=== PATIENT | female | born 1950 | race Caucasian/White ===

== ENCOUNTER 2023-06-09 07:30 | Day surgery (SDC) | payer OTHER ==
--- NOTE | 2023-06-07 11:21 | RAD REPORT ---
EXAM DESCRIPTION: RAD - Chest Pa And Lat (2 Views) - 06/07/2023 11:09 am CLINICAL HISTORY: pre procedure Chest pain. COMPARISON: No comparisons FINDINGS: The lungs are clear. The heart is mildly enlarged in size. No displaced fractures. IMPRESSION: No acute or concerning finding suspected. The USPSTF recommends annual screening for lung cancer with low-dose CT (LDCT) in adults aged 50 to 8 0 years who have a 20 pack-year smoking history and currently smoke or have quit within the past 15 y ears.
[2023-06-07 11:49] LABS: Absolute Lymphocytes (CBC) 2.2 K/uL (0.7-4.9); Hematocrit 40.3 % (36.0-45.0); Lymphocytes % 29.7 % (15.3-44.8); MCV 87.2 fL (80-100); MPV 8.5 fL (7.6-11.3); Platelets 257 thou/uL (152-406); RBC Red Blood Cell Count 4.62 M/uL (3.86-4.86)
[2023-06-07 11:56] LABS: Protime INR 0.98
[2023-06-07 12:05] LABS: Potassium 4.3 mEq/L (3.5-5.1)
[2023-06-09] MEDS ORDERED: NA CHLORIDE 0.9% 500 ML ONE (08:21)
[2023-06-09 08:47] VITALS: TEMP 97.2
[2023-06-09] MEDS ORDERED: LIDOCAINE 1% 20 ML MDV ONE (09:27)
[2023-06-09] MEDS ORDERED: HEPA 1000U/500MLS 2,000 UNIT/1,000 ML BAG IV ONE (09:27)
[2023-06-09] MEDS ORDERED: MIDAZOLAM HCL 2 MG/2 ML INJ ONE (09:30)
[2023-06-09] MEDS ORDERED: HEPARIN 10,000 UNIT/10 ML VIAL IV ONE (09:30)
[2023-06-09] MEDS ORDERED: FENTANYL CITR 100 MCG/2 ML ONE (09:30)
[2023-06-09] MEDS ORDERED: CLOPIDOGREL 75 MG TABLET ONE (10:06)
[2023-06-09] MEDS ORDERED: TICAGRELOR 90 MG TABLET PO ONE (10:06)
[2023-06-09] MEDS ORDERED: ASPIRIN 325 MG TAB ONE (10:06)
[2023-06-09] MEDS ORDERED: ATROPINE SULF 1 MG/10 ML SYR IV ONE (10:42)
--- NOTE | 2023-06-09 11:19 | OP ---
Date of Procedure: 06/09/2023 Surgeon: SOLOMON GERARD Procedures Performed: 1.Selective coronary angiogram. 2.Left heart catheterization. 3.PCI of severe proximal RCA 99% stenosis. I used 3.5 x 20 mm Synergy drug-eluting stent. Indication: Chest pain with abnormal stress test. Access: Right radial artery 6-[place] closed with TR band. Complications: None. Anesthesia: Total sedation time was 1 hour. Used fentanyl and Versed. Description Of Procedure: After risks, benefits, and alternatives were explained, patient agreed to procedure and signed informal consent. Patient was brought into cardiac catheterization laboratory, prepped and draped in usual sterile fashion and then I accessed right radial artery using pediatric m icropuncture kit, placed a 6-[place] Slender sheath and took 5-[place] 4 catheter into the aortic root, engaged left main, took standard views and then in the RCA, took standard views and the cathet er was pushed over the wire into the LV, measured the LVEDP, and pullback did not record any gradient , then I gave systemic heparin to assure ACT level above 250 throughout the procedure. Gave 180 Bril inta, 325 mg aspirin, and took a 6-[place] JR4 guide into the aortic root over the J-wire, engaged the RCA and took a Runthrough wire into the RCA, placed it distally and using a 3.0 Compliant balloon to high pressure, lesion expanded very well and then I used a 3.5 x 15 NC balloon with good expansion. Subsequently, I took a 3.5 x 20 mm Synergy drug-eluting stent across the area of stenosis with excel lent position and excellent expansion. Patient tolerated the procedure very well. Final angiogram w as satisfactory. Then wire and guide and sheath were removed, placed TR band with good hemostasis. Findings: 1.Left main; large and normal. 2.LAD; moderate-sized vessel with mid 40% at the takeoff of the diagonal. Diagonal appears to be no rmal and the LAD distally becomes very small, has 50% stenosis focally, gives collaterals to the RCA. 3.Left circumflex is moderate size, with no significant disease. 4.RCA; large and dominant with proximal 80% and then it becomes 99% heavily calcified, status post s uccessful PCI as above and then in the mid segment has 40% and then it is getting collaterals from th e left side. 5.LVEDP is normal at 5 mmHg. Conclusions: 1.Critical proximal RCA stenosis, status post successful PCI as above. 2.Moderate coronary artery disease elsewhere. 3.Abnormal LVEDP. Plan: Brilinta, aspirin, and statin. Follow up with me in the office in 2 weeks. SR/MODL Voice ID: [id number] Report ID: [id number]
[2023-06-09] MEDS ORDERED: CLOPIDOGREL 75 MG TABLET PO ONE ×2 (14:45→15:15)
[2023-06-09 15:56] VITALS: O2SAT 98
[2023-06-09 15:57] VITALS: BP 108/47
== END 2023-06-09 15:28 | disposition home or self-care (01) ==
LOC: CCL 07:30
PROVIDERS: ATTEND Internal Medicine
DX: I25.119 Atherosclerotic heart disease of native coronary artery with unspecified angina pectoris (principal); I10 Essential (primary) hypertension; E78.5 Hyperlipidemia, unspecified; Z87.891 Personal history of nicotine dependence; Z79.899 Other long term (current) drug therapy
CPT/HCPCS: 85025; 80048; 36415; 85610; 85347 ×2; 85730; 71046; 93458; 76937; C1893; Q9967; C1725; C9600; J2001; J2250; J3010; J7040; J0461